=== PATIENT | male | born 2000 | race Caucasian/White ===

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

== ENCOUNTER → 2018-09-28 | Outpatient (CLI) | payer OTHER | LOC: GMAJ 15:17 | PROVIDERS: ATTEND Family Medicine | DX: R22.1 Localized swelling, mass and lump, neck (principal) ==

== ENCOUNTER → 2018-09-28 | Outpatient (CLI) | payer OTHER ==
--- NOTE | 2018-09-29 09:16 | US ---
EXAM: Soft Tissue,Head/Neck CLINICAL HISTORY: NECK MASS COMPARISON STUDY: None TECHNICAL: Ultrasound and color flow evaluation in the area of palpable concern FINDINGS: Ultrasound examination of the left posterior neck soft tissue shows several circumscribed hypoechoic structures consistent with lymph nodes. The largest solitary lymph node measures 22 x 6 mm. There is no cystic necrosis. There is no abnormal fluid collection. IMPRESSION: Lymphadenopathy explains the palpable abnormality in the left posterior neck. Electronically signed by: Ismael Parisi MD 09/29/2018 9:13 AM CDT
== END ==
LOC: US 10:23
PROVIDERS: ATTEND Family Medicine
DX: R59.0 Localized enlarged lymph nodes (principal)

== ENCOUNTER 2018-10-22 13:26 | Emergency (ER) | payer OTHER ==
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
[2018-10-22 13:51] VITALS: TEMP 97.7
[2018-10-22 14:46] VITALS: BP 119/75; O2SAT 99
== END 2018-10-22 14:26 | disposition home or self-care (01) ==
LOC: ER 13:26
DX: Z77.21 Contact with and (suspected) exposure to potentially hazardous body fluids (principal); F32.9 Major depressive disorder, single episode, unspecified; Y99.0 Civilian activity done for income or pay; Y92.69 Other specified industrial and construction area as the place of occurrence of the external cause; Z87.891 Personal history of nicotine dependence; Z79.899 Other long term (current) drug therapy

== ENCOUNTER → 2019-02-17 | Outpatient (CLI) | payer OTHER | LOC: GMATM 11:37 | PROVIDERS: ATTEND Nurse Practitioner Family | DX: R19.7 Diarrhea, unspecified (principal) ==

== ENCOUNTER → 2019-02-17 | Outpatient (CLI) | payer OTHER | LOC: GMATM 13:04 | PROVIDERS: ATTEND Nurse Practitioner Family | DX: R19.7 Diarrhea, unspecified (principal) ==

== ENCOUNTER → 2019-03-27 | Outpatient (CLI) | payer OTHER | LOC: GMATM 17:53 | PROVIDERS: ATTEND Nurse Practitioner Family | DX: Z72.52 High risk homosexual behavior (principal); Z20.2 Contact with and (suspected) exposure to infections with a predominantly sexual mode of transmission ==

== ENCOUNTER → 2019-04-14 | Outpatient (CLI) | payer OTHER | LOC: GMAJ 12:32 | PROVIDERS: ATTEND Family Medicine | DX: A09 Infectious gastroenteritis and colitis, unspecified (principal) ==